=== PATIENT | male | born 1980 | race Caucasian/White ===

== ENCOUNTER 2019-12-31 13:40 | Emergency (ER) | payer SELFPAY ==
[~2019-12-31] VITALS: Ht 180.3 cm; Wt 115.9 kg
[2019-12-31 13:52] VITALS: BP 167/100
== END 2019-12-31 14:48 | disposition home or self-care (01) ==
LOC: EMS 14:39
DX: S31.159A Open bite of abdominal wall, unspecified quadrant without penetration into peritoneal cavity, initial encounter (principal); I10 Essential (primary) hypertension; W54.0XXA Bitten by dog, initial encounter; Y93.89 Activity, other specified; Y92.89 Other specified places as the place of occurrence of the external cause; Y99.8 Other external cause status